=== PATIENT | male | born 1955 | race Caucasian/White ===

== ENCOUNTER 2018-01-07 15:10 | Inpatient (IN) | payer OTHER ==
[~2018-01-07] VITALS: Ht 167.6 cm; Wt 59.0 kg
[2018-01-07] VITALS (15 sets, daily range): BP systolic 86–157; BP diastolic 66–123
--- NOTE | ~2018-01-07 | EEG ---
[facility] [place] [address] ELECTROENCEPHALOGRAM Name: BRAULIO FUENTES Room #: 421-P [facility] IN .R.#: [id number] Admission: 01/07/18 Attend Phys: Zachery Stokes MD Discharge: Date of : 55 Report #: [id number] THIS REPORT FOR: //name// CC: Zachery Stokes [facility] physician/PCP DATE OF SERVICE: 01/11/2018 This patient's EEG is being done to evaluate the patient for altered mental status. The patient did not cooperate, so significant amount of artifact is present. EEG was done by placing the electrode by standard 10-20 system of electrode placement. Both referential and sequential montages were used for recording. Background activity in this patient is about 8 Hz and 30 microvolt. The patient appeared to be drowsy during part of this EEG associated with bilateral slowing and vertex sharp waves. Photic stimulation is unremarkable. Throughout the record, no active epileptiform activity was noted. IMPRESSION: This patient's EEG is difficult to interpret because it is masked by a lot of artifact. I do not see any well-defined epileptiform activity. EEG is slow and that is a nonspecific finding which can occur with encephalopathy, effect of psychotropic medication, dementia, etc. Clinical correlation is recommended. <ELECTRONICALLY SIGNED> By: Bud Anderson MD 01/12/18 1228 1659 1731 Bud Anderson MD /joe
--- NOTE | ~2018-01-07 | EKG ---
[address] [address] ELECTROCARDIOGRAM REPORT Name: BRAULIO FUENTES Room #: 246-P ADM IN M.R.#: [id number] Admission: 01/07/18 Attend Phys: Zachery Stokes MD Discharge: Date of : 55 Report #: [id number] THIS REPORT FOR: //name// [facility] ED Test Date: 2018-01-07 Test Time: 15:19:45 Pat Name: BRAULIO FUENTES Department: Room: 170 7 Gender: M [employer] Analyst: JLCAROLYN : 1955 Requested By: Miguelangel Cifuentes Order Number: [id number] MD: Lazaro Franco Measurements Intervals [place] Rate: 94 P: 83 VA: 124 QRS: 83 QRSD: 127 T: -18 QT: 440 QTc: 551 Interpretive Statements Sinus rhythm Right atrial enlargement Probable left ventricular hypertrophy Nonspecific T abnormalities, inferior leads Prolonged QT interval No previous ECG available for comparison Electronically Signed On 01-08-2018 7:33:44 CDT by Lazaro Franco [email or web address] <ELECTRONICALLY SIGNED> By: Lazaro Franco MD 01/08/18 0733 1519 1519 Lazaro Franco MD /MATT
--- NOTE | ~2018-01-07 | HC ---
[facility] [place] [address] CONSULTATION Name: BRAULIO FUENTES Room #: 421-P [facility] IN ..#: [id number] Admission: 01/07/18 Attend Phys: Zachery Stokes MD Discharge: Date of : 55 Report #: [id number] THIS REPORT FOR: //name// CC: Zachery Stokes [facility] physician/PCP CHIEF COMPLAINT: Urinary retention. HISTORY OF PRESENT ILLNESS: The patient is a very pleasant 62-year-old gentleman who is being seen today at the request of Dr. Stokes for evaluation and management of urinary retention. Specifically, he was admitted to [facility] with altered mental status and has been found to have rhabdomyolysis, altered mental status with encephalopathy, and at time of admission, he had acute renal failure. He can provide no history. He had normal upper tracts at the time of admission, but was in urinary retention. A catheter was placed. He subsequently failed a voiding trial and about 1200 mL of urine was obtained. Upon questioning, he really cannot answer any questions meaningfully about what he is feeling regarding his urinary system, in fact was completely unaware that a catheter was in his urethra. ALLERGIES: Not known. ILLNESSES: Include altered mental status, encephalopathy, rhabdomyolysis, UTI, sacral decubitus. PAST MEDICAL AND SURGICAL HISTORY: Unknown. SOCIAL HISTORY: Tobacco use is unknown. Alcohol use is unknown. REVIEW OF SYSTEMS: He denies shortness of breath or chest pain. PHYSICAL EXAMINATION: VITAL SIGNS: His temperature is 37.4, pulse 85, respirations 18, blood pressure 123/80. GENITOURINARY: He has normal phallus with an indwelling Waggoner catheter draining clear urine. LABORATORY DATA: White count 6500, hemoglobin 11.0, hematocrit 32.3, platelets 183,000. Sodium is 140, potassium 3.9, chloride 108, CO2 of 22, BUN 14, creatinine 1.2. Of note, creatinine was 5.[address] abdomen and pelvis showed distention of the bladder with no hydronephrosis of the kidneys. IMPRESSION: Altered mental status with urinary retention. At this point, he has failed a voiding trial and cannot answer questions meaningfully. It is unlikely that he will void spontaneously. I am happy to follow with you, but at [facility] [address] [place] [address] CONSULTATION Name: BRAULIO FUENTES Room #: 421-P [facility] IN ..#: [id number] Admission: 01/07/18 Attend Phys: Zachery Stokes MD Discharge: Date of : 55 Report #: [id number] this point, he needs a long-term drainage. I leave the Waggoner catheter in for the time being. Ultimately, he may need to be converted to a suprapubic tube. <ELECTRONICALLY SIGNED> By: Rusty Dickey MD 01/20/18 0701 0656 0939 Rusty Dickey MD /joe
--- NOTE | ~2018-01-07 | EEG ---
[facility] [place] [address] ELECTROENCEPHALOGRAM Name: BRAULIO FUENTES Room #: 246-P [facility] IN M.R.#: [id number] Admission: 01/07/18 Attend Phys: Zachery Stokes MD Discharge: Date of : 55 Report #: [id number] THIS REPORT FOR: //name// CC: Zachery Stokes [facility] physician/PCP DATE OF SERVICE: 01/08/2018 This patient is being evaluated for altered mental status. The EEG was done by placing the electrode by standard 10-20 system of electrode placement. Both referential and sequential montages were used for recording. Background activity in this patient's EEG is about 8 Hz and 30 microvolt. Photic stimulation is unremarkable. This patient became drowsy and went to sleep that is associated with bilateral symmetrical sleep spindle and vertex sharp waves. Throughout the record, no active epileptiform activity was noticed. IMPRESSION: This is a moderately abnormal EEG because it is intermixed with theta range slowing on both sides. That is a nonspecific abnormality, which can occur with encephalopathy, effect of psychotropic medication, dementia, etc. Clinical correlation is recommended. <ELECTRONICALLY SIGNED> By: Bud Anderson MD 01/10/182151 28 35 Bud Anderson MD /nt
--- NOTE | ~2018-01-07 | HC ---
[facility] [place] [address] CONSULTATION Name: BRAULIO FUENTES Room #: 246-P [facility] IN ..#: [id number] Admission: 01/07/18 Attend Phys: Zachery Stokes MD Discharge: Date of : 55 Report #: [id number] THIS REPORT FOR: //name// CC: Zachery Stokes [facility] physician/PCP DATE OF SERVICE: 01/08/2018 HISTORY OF PRESENT ILLNESS: This is a 62-year-old male patient who is unable to provide any history. I talked to Dr. Stokes, the hospitalist and I talked to the nurse looking after this patient. The patient does not provide any reliable history. It looks like this patient was found unresponsive on the floor of his house when the neighbor called the police for a wellness check. It would appear he was there for a few days. It is not clear what event caused him to fall down. He is not conscious, but wakes up some but does not even follow simple commands. Therefore, history is very difficult. REVIEW OF SYSTEMS: Indicate he is admitted with encephalopathy, rhabdo, acute renal failure, altered mental status. He does have some urinary tract infection, but his white count in the urine is rare. I tried to carry out the 14-point review of system and this is all I can get. Record also indicates that the patient may have a nasal bleed from urinary retention, lactic acidosis. This is all the 14-point review of system I can get from the patient or from the record and attempt was made to get that. FAMILY HISTORY: Unavailable in this patient. FAMILY HISTORY: Apparently this patient does not have a family as per record. SOCIAL HISTORY: Not known if the patient smokes or drinks alcohol or do any drugs. His urine drug screen was negative. His alcohol level was less than 10. PHYSICAL EXAMINATION: Pretty limited. It was attempted. He is sleepy, but he wakes up when constant stimulus is given, but goes back to sleep pretty fast. He does not follow even simple commands. That makes the examination very difficult. He does appear to have speech, but does not know what month it is. I attempted to do the cranial nerve examination 2-12 in this patient. He is not able to cooperate. I cannot tell if he moves symmetrically or what his sensation are, but reflexes appeared to be symmetrical, but he did not take a good position to do good reflexes here. I could not look at the fundus. He does not understand instruction for cerebellar sign. He is moderately well built individual who does not have any dysmorphic features of eyes, ears and face. His vision and hearing is difficult to tell. His cardiac examination is unremarkable. He does not appear to have much edema, cyanosis or jaundice. Blood pressure is 121/90, respirations 18, pulse is 58. His temperature is 97.3. [facility] [address] [place] [address] CONSULTATION Name: BRAULIO FUENTES Room #: 246-P [facility] IN ..#: [id number] Admission: 01/07/18 Attend Phys: Zachery Stokes MD Discharge: Date of : 55 Report #: [id number] LABORATORY DATA: Indicates normal white count now at 10.9, but his MCV is increased. He also has increased sodium. He did have a CT scan of the head, which demonstrated volume loss. IMPRESSION: Very difficult to perform in this patient because of such poor history. It is not clear what the cause of his passing out spell is. He does have brain atrophy and he does have increased MCV. We need to see if there is a history of alcohol intake in this patient and we will also check B12 level in this patient. He obviously has encephalopathy and will get an EEG to further evaluate that. RECOMMENDATIONS: 1. EEG. 2. B12 level because of increased MCV. 3. Because of increased MCV and loss of volume and CT, I will go ahead and give thiamine until we find out whether the patient has history of alcohol intake or not. 4. We may consider MRI if we can find some family. 5. We will check a TSH, vitamin B12. 6. We will follow up after the EEG is done and arranged. Further workup as necessary and see if we need to do an MRI in this patient or not. Thank you very much for this referral and Dr. Serna will be taking over the service and follow up with you from tomorrow. <ELECTRONICALLY SIGNED> By: Bud Anderson MD 01/10/18 2151 1050 8045 Bud Anderson MD /nt
[2018-01-07 15:53] LABS: BE(vivo) -6.6 mmol/L (-2 to +3); HCO3 13.9 mmol/L (22.0-26.0); PO2 112.4 mmHg (80.0-100.0); sO2 98.5 % (92.0-98.0)
[2018-01-07 16:01] LABS: PCO2 19.1 mmHg (35.0-45.0)
[2018-01-07 16:46] LABS: URINE BLOOD 1+ (Negative); URINE CLARITY CLEAR; URINE GLUCOSE-RANDOM* NEGATIVE (Negative); URINE KETONES NEGATIVE (Negative); URINE LEUKOCYTES-REFLEX NEGATIVE (Negative); URINE PROTEIN (DIPSTICK) NEGATIVE (Negative); URINE SPECIFIC GRAVITY >= 1.030 (1.005-1.035); URINE UROBILINOGEN 0.2 E.U./dl (0.2-1.0)
[2018-01-07 16:48] LABS: URINE NITRITE-REFLEX POSITIVE (Negative)
[2018-01-07 16:49] LABS: URINE BILIRUBIN NEGATIVE (Negative); URINE COLOR BROWNISH
[2018-01-07 16:50] LABS: SQUAMOUS None Seen /LPF (0-3); URINE RBC 0-2 Rare /HPF (0-2); URINE WBC-REFLEX 0-5 Rare /HPF (0-5)
[2018-01-07 16:51] LABS: BACTERIA-REFLEX 1-9 Few /HPF (None Seen); CASTS None Seen /LPF (None Seen); CRYSTALS None Seen /LPF (None Seen)
[2018-01-07 16:55] LABS: AMP/METHAMP Negative (Negative); BARBITURATES Negative (Negative); BENZODIAZEPINES Negative (Negative); COCAINE Negative (Negative); METHADONE Negative (Negative); OPIATES Negative (Negative); PCP Negative (Negative)
[2018-01-07 17:02] LABS: HEMATOCRIT 41.6 % (42.0-52.0); HEMOGLOBIN 14.4 gm/dL (14.0-18.0); MCH 39.6 pg (26.0-34.0); MCHC 34.8 g/dL (28.0-37.0); MCV 113.8 fL (80.0-100.0); RBC 3.65 mil/uL (4.50-6.00); RDW 16.2 % (10.5-14.5); WBC 13.7 thou/uL (4.0-11.0)
[2018-01-07 17:09] LABS: CALCIUM 8.4 mg/dL (8.5-10.1); CREATININE 5.1 mg/dL (0.7-1.3); POTASSIUM 3.1 mmol/L (3.5-5.1)
[2018-01-07 17:30] LABS: ALBUMIN 3.2 g/dL (3.4-5.0); TOTAL BILIRUBIN 1.2 mg/dL (<0.1-1.0); TOTAL PROTEIN 6.4 g/dL (6.4-8.2); TROPONIN-I 0.07 ng/mL (<0.06)
[2018-01-07 17:34] LABS: ABSOLUTE NEUTROPHILS 11.5 thou/uL (1.4-8.2); ANISOCYTOSIS 1+; PLATELET COUNT 191 thou/uL (150-400)
[2018-01-07 17:35] LABS: MACROCYTES 1+
[2018-01-08] VITALS (61 sets, daily range): BP systolic 80–130; BP diastolic 58–104
[2018-01-08 05:24] LABS: HEMATOCRIT 34.4 % (42.0-52.0); MCHC 35.3 g/dL (28.0-37.0); MCV 113.3 fL (80.0-100.0); RBC 3.04 mil/uL (4.50-6.00); WBC 10.9 thou/uL (4.0-11.0)
[2018-01-08 05:26] LABS: HEMOGLOBIN 12.2 gm/dL (14.0-18.0)
[2018-01-08 05:39] LABS: ALBUMIN 2.5 g/dL (3.4-5.0); CALCIUM 7.6 mg/dL (8.5-10.1); CREATININE 4.6 mg/dL (0.7-1.3); POTASSIUM 3.1 mmol/L (3.5-5.1); TOTAL BILIRUBIN 0.9 mg/dL (<0.1-1.0); TOTAL PROTEIN 5.4 g/dL (6.4-8.2)
[2018-01-08 12:06] LABS: TSH 0.757 uIU/mL (0.358-3.740)
[2018-01-09] VITALS (84 sets, daily range): BP systolic 63–135; BP diastolic 41–98
[2018-01-09 05:25] LABS: ABSOLUTE NEUTROPHILS 6.3 thou/uL (1.4-8.2); BASOPHILS 0.8 % (0.0-2.0); EOSINOPHILS 0.2 % (0.0-3.0); HEMATOCRIT 29.8 % (42.0-52.0); HEMOGLOBIN 10.4 gm/dL (14.0-18.0); LYMPHOCYTES 17.3 % (24.0-44.0); MCH 40.3 pg (26.0-34.0); MCHC 34.9 g/dL (28.0-37.0); MCV 115.4 fL (80.0-100.0); MONOCYTES 3.2 % (1.0-8.0); PLATELET COUNT 96 thou/uL (150-400); POLYS 78.5 % (36.0-66.0); RBC 2.59 mil/uL (4.50-6.00); RDW 15.5 % (10.5-14.5)
[2018-01-09 05:35] LABS: CALCIUM 7.2 mg/dL (8.5-10.1); PHOSPHORUS 3.2 mg/dL (2.5-4.9); POTASSIUM 3.1 mmol/L (3.5-5.1)
[2018-01-09 05:37] LABS: CREATININE 2.6 mg/dL (0.7-1.3)
[2018-01-10] VITALS (54 sets, daily range): BP systolic 70–220; BP diastolic 38–192
[2018-01-10 04:45] LABS: HEMATOCRIT 29.1 % (42.0-52.0); HEMOGLOBIN 10.2 gm/dL (14.0-18.0); MCH 39.9 pg (26.0-34.0); PLATELET COUNT 94 thou/uL (150-400); RBC 2.56 mil/uL (4.50-6.00); RDW 15.5 % (10.5-14.5); WBC 6.5 thou/uL (4.0-11.0)
[2018-01-10 05:04] LABS: CALCIUM 7.5 mg/dL (8.5-10.1); PHOSPHORUS 2.4 mg/dL (2.5-4.9); POTASSIUM 3.2 mmol/L (3.5-5.1)
[2018-01-10 05:06] LABS: CREATININE 1.6 mg/dL (0.7-1.3)
[2018-01-10 05:26] LABS: ABSOLUTE NEUTROPHILS 4.3 thou/uL (1.4-8.2); NUCLEATED RBCS 1 /100WBC
[2018-01-10 05:27] LABS: ANISOCYTOSIS 1+; MACROCYTES 3+; POLYCHROMASIA OCCASIONAL
[2018-01-11] VITALS (20 sets, daily range): BP systolic 82–117; BP diastolic 50–96
[2018-01-11 06:10] LABS: ALBUMIN 2.1 g/dL (3.4-5.0); CALCIUM 8.1 mg/dL (8.5-10.1); CREATININE 1.1 mg/dL (0.7-1.3); PHOSPHORUS 2.3 mg/dL (2.5-4.9); POTASSIUM 3.8 mmol/L (3.5-5.1)
[2018-01-11 09:51] LABS: HEMATOCRIT 30.3 % (42.0-52.0); HEMOGLOBIN 10.6 gm/dL (14.0-18.0)
[2018-01-12 04:00] VITALS: BP 99/69
[2018-01-12 05:54] LABS: HEMOGLOBIN 10.5 gm/dL (14.0-18.0); MCH 39.7 pg (26.0-34.0); MCV 113.7 fL (80.0-100.0); RBC 2.64 mil/uL (4.50-6.00); RDW 16.3 % (10.5-14.5); WBC 6.3 thou/uL (4.0-11.0)
[2018-01-12 11:54] VITALS: BP 101/70
[2018-01-12 16:09] VITALS: BP 98/66
[2018-01-12 19:22] VITALS: BP 105/76
[2018-01-12 23:53] VITALS: BP 112/81
[2018-01-13 03:54] VITALS: BP 119/87
[2018-01-13 05:19] LABS: CALCIUM 8.1 mg/dL (8.5-10.1); CREATININE 1.2 mg/dL (0.7-1.3); POTASSIUM 3.9 mmol/L (3.5-5.1)
[2018-01-13 05:22] LABS: PROTIME 10.5 Seconds (9.3-11.4)
[2018-01-13 05:36] LABS: HEMATOCRIT 30.7 % (42.0-52.0); HEMOGLOBIN 10.8 gm/dL (14.0-18.0); MCV 114.2 fL (80.0-100.0); RBC 2.69 mil/uL (4.50-6.00); RDW 16.2 % (10.5-14.5); WBC 5.7 thou/uL (4.0-11.0)
[2018-01-13 07:10] VITALS: BP 114/81
[2018-01-13 14:11] LABS: CSF RBC 230 /mm3; CSF WBC 6 /mm3 (0-10)
[2018-01-13 14:16] LABS: CSF GLUCOSE 54 mg/dL (40-70); CSF PROTEIN 113 mg/dL (15-45)
[2018-01-13 14:17] LABS: VOLUME 12 ml
[2018-01-13 15:29] VITALS: BP 107/84
[2018-01-13 19:20] VITALS: BP 104/64
[2018-01-14] VITALS (8 sets, daily range): BP systolic 70–121; BP diastolic 51–83
[2018-01-15] VITALS (7 sets, daily range): BP systolic 88–119; BP diastolic 51–81
[2018-01-16 01:09] VITALS: BP 128/90
[2018-01-16 04:24] VITALS: BP 101/63
[2018-01-16 07:43] VITALS: BP 115/97
[2018-01-16 15:25] VITALS: BP 93/66
[2018-01-16 16:07] LABS: CSF VDRL Non Reactive (Non Rea:<1:1)
[2018-01-17 03:45] VITALS: BP 120/80
[2018-01-17 08:15] VITALS: BP 126/75
[2018-01-17 17:00] VITALS: BP 127/75
[2018-01-17 20:00] VITALS: BP 134/85
[2018-01-18 04:30] VITALS: BP 141/76
[2018-01-18 07:18] VITALS: BP 135/84
[2018-01-18 10:48] LABS: HEMATOCRIT 32.3 % (42.0-52.0); MCH 39.6 pg (26.0-34.0); MCHC 34.2 g/dL (28.0-37.0); MCV 115.8 fL (80.0-100.0); RBC 2.79 mil/uL (4.50-6.00); RDW 15.4 % (10.5-14.5); WBC 6.5 thou/uL (4.0-11.0)
[2018-01-18 16:16] VITALS: BP 106/66
[2018-01-18 20:21] VITALS: BP 95/63
[2018-01-19 04:35] VITALS: BP 123/80
[2018-01-19 07:30] VITALS: BP 121/76
[2018-01-19 20:00] VITALS: BP 130/90
[2018-01-20 04:30] VITALS: BP 106/76
[2018-01-20 07:38] VITALS: BP 96/65
[2018-01-20 16:42] VITALS: BP 66/50
[2018-01-20 20:00] VITALS: BP 89/54
[2018-01-21 04:00] VITALS: BP 94/61
[2018-01-21 07:15] VITALS: BP 122/74
[2018-01-21 15:52] VITALS: BP 102/63
[2018-01-21 19:15] VITALS: BP 104/60
[2018-01-22 03:45] VITALS: BP 117/75
[2018-01-22 13:22] LABS: HEMATOCRIT 28.2 % (42.0-52.0); HEMOGLOBIN 9.8 gm/dL (14.0-18.0); MCH 39.2 pg (26.0-34.0); MCHC 34.8 g/dL (28.0-37.0); MCV 112.7 fL (80.0-100.0); RBC 2.5 mil/uL (4.50-6.00); RDW 15.7 % (10.5-14.5); WBC 5.6 thou/uL (4.0-11.0)
[2018-01-22 13:29] LABS: CALCIUM 7.9 mg/dL (8.5-10.1); CREATININE 0.9 mg/dL (0.7-1.3); POTASSIUM 3.4 mmol/L (3.5-5.1)
[2018-01-22 16:50] VITALS: BP 92/54
[2018-01-22 19:45] VITALS: BP 117/80
[2018-01-23 04:00] VITALS: BP 129/92
[2018-01-23 08:25] VITALS: BP 78/56
[2018-01-23 16:00] VITALS: BP 96/67
[2018-01-23 20:12] LABS: HEMATOCRIT 24.1 % (42.0-52.0); HEMOGLOBIN 8.1 gm/dL (14.0-18.0)
[2018-01-23 20:52] VITALS: BP 78/50
[2018-01-23 23:55] VITALS: BP 85/54
[2018-01-24 04:27] VITALS: BP 96/60
[2018-01-24 05:55] LABS: CALCIUM 7.9 mg/dL (8.5-10.1); CREATININE 0.9 mg/dL (0.7-1.3); POTASSIUM 3.7 mmol/L (3.5-5.1)
[2018-01-24 05:57] LABS: BASOPHILS 0.3 % (0.0-2.0)
[2018-01-24 05:59] LABS: ABSOLUTE NEUTROPHILS 6.6 thou/uL (1.4-8.2); EOSINOPHILS 0.4 % (0.0-3.0); LYMPHOCYTES 19.7 % (24.0-44.0); MCH 38.6 pg (26.0-34.0); MCHC 34.3 g/dL (28.0-37.0); MCV 112.5 fL (80.0-100.0); MONOCYTES 4.7 % (1.0-8.0); PLATELET COUNT 176 thou/uL (150-400); POLYS 74.9 % (36.0-66.0); RBC 1.67 mil/uL (4.50-6.00); RDW 15.4 % (10.5-14.5); WBC 8.8 thou/uL (4.0-11.0)
[2018-01-24 06:03] LABS: HEMATOCRIT 18.7 % (42.0-52.0); HEMOGLOBIN 6.4 gm/dL (14.0-18.0)
[2018-01-24 09:12] VITALS: BP 85/60
[2018-01-24 10:08] VITALS: BP 88/58; BP 88/64
[2018-01-24 15:07] LABS: HEMATOCRIT 21.9 % (42.0-52.0); HEMOGLOBIN 7.6 gm/dL (14.0-18.0)
[2018-01-24 15:26] VITALS: BP 102/55
[2018-01-24 20:25] VITALS: BP 94/65
[2018-01-25 03:48] VITALS: BP 93/52
[2018-01-25 06:01] LABS: HEMATOCRIT 20.7 % (42.0-52.0); MCH 34.7 pg (26.0-34.0); MCHC 33.8 g/dL (28.0-37.0); PLATELET COUNT 191 thou/uL (150-400); RBC 2.01 mil/uL (4.50-6.00); RDW 25.3 % (10.5-14.5); WBC 6.4 thou/uL (4.0-11.0)
[2018-01-25 06:02] LABS: MCV 102.7 fL (80.0-100.0)
[2018-01-25 06:07] LABS: CALCIUM 7.4 mg/dL (8.5-10.1); POTASSIUM 3.5 mmol/L (3.5-5.1)
[2018-01-25 06:57] VITALS: BP 103/71
[2018-01-25 07:41] LABS: ABSOLUTE NEUTROPHILS 4.7 thou/uL (1.4-8.2); ANISOCYTOSIS 2+; HYPOCHROMASIA 1+; MACROCYTES SLIGHT; METAMYELOCYTES 1 %; POIKILOCYTOSIS SLIGHT
[2018-01-25 07:42] LABS: POLYCHROMASIA SLIGHT
[2018-01-25 08:34] VITALS: BP 105/68; BP 110/69
[2018-01-25 19:15] VITALS: BP 132/76
[2018-01-26 04:05] VITALS: BP 101/78
[2018-01-26 05:50] LABS: ABSOLUTE NEUTROPHILS 2.8 thou/uL (1.4-8.2); BASOPHILS 0.6 % (0.0-2.0); EOSINOPHILS 2.4 % (0.0-3.0); HEMATOCRIT 24.6 % (42.0-52.0); HEMOGLOBIN 8.4 gm/dL (14.0-18.0); LYMPHOCYTES 32.2 % (24.0-44.0); MCH 34.2 pg (26.0-34.0); MCHC 34.3 g/dL (28.0-37.0); MCV 99.8 fL (80.0-100.0); PLATELET COUNT 223 thou/uL (150-400); POLYS 59.8 % (36.0-66.0); RBC 2.47 mil/uL (4.50-6.00); RDW 25.7 % (10.5-14.5); WBC 4.7 thou/uL (4.0-11.0)
[2018-01-26 06:01] LABS: CALCIUM 7.8 mg/dL (8.5-10.1); POTASSIUM 3.5 mmol/L (3.5-5.1)
[2018-01-26 08:45] VITALS: BP 115/74
[2018-01-26 08:48] LABS: ANISOCYTOSIS 3+
[2018-01-26 08:49] LABS: MACROCYTES 1+; POLYCHROMASIA OCCASIONAL
[2018-01-26] MEDS ORDERED: ERGOCALCIF50000 UNIT PO (15:22)
[2018-01-26] MEDS ORDERED: FLOMAX0.4 MG PO (15:22)
[2018-01-26] MEDS ORDERED: GABAPENTIN 100100 MG PO (15:22)
[2018-01-26] MEDS ORDERED: PROTONIX40 M1 PO (15:22)
[2018-01-26] MEDS ORDERED: HALOPERIDOL 5 MG5 MG PO (15:22)
[2018-01-26] MEDS ORDERED: FOLIC ACID1 MG PO (15:22)
[2018-01-26] MEDS ORDERED: ACETAMINOPHEN325 M1 PO (15:22)
[2018-01-26] MEDS ORDERED: RISPERIDONE 00.25 M1 PO (15:22)
[2018-01-26] MEDS ORDERED: VITAMIN B-1100 M2 PO (15:22)
[2018-01-26 15:45] VITALS: BP 123/70
== END 2018-01-26 18:15 | DRG 871 ==
LOC: ER 15:10 → EROBS 17:46 → ICU 17:46 → 4E 01-11 16:57
PROVIDERS: Family Medicine; Hospitalist; Internal Medicine Gastroenterology; Nurse Practitioner; Nurse Practitioner Family; Physician Assistant; Psychiatry & Neurology Neurology; Psychiatry & Neurology Neuromuscular Medicine
PROC: 02HV33Z Insertion of Infusion Device into Superior Vena Cava, Percutaneous Approach (ICD-10-PCS; principal; 2018-01-07)
PROC: B01B1ZZ Fluoroscopy of Spinal Cord using Low Osmolar Contrast (ICD-10-PCS; 2018-01-13)
PROC: 009U3ZX Drainage of Spinal Canal, Percutaneous Approach, Diagnostic (ICD-10-PCS; 2018-01-13)
PROC: 30233N1 Transfusion of Nonautologous Red Blood Cells into Peripheral Vein, Percutaneous Approach (ICD-10-PCS; 2018-01-24)
DX: A41.9 Sepsis, unspecified organism (principal); G93.41 Metabolic encephalopathy; N17.9 Acute kidney failure, unspecified; M62.82 Rhabdomyolysis; N39.0 Urinary tract infection, site not specified; E87.0 Hyperosmolality and hypernatremia; E46 Unspecified protein-calorie malnutrition; K92.2 Gastrointestinal hemorrhage, unspecified; F10.27 Alcohol dependence with alcohol-induced persisting dementia; R33.9 Retention of urine, unspecified; E86.9 Volume depletion, unspecified; E87.6 Hypokalemia; E86.0 Dehydration; D69.6 Thrombocytopenia, unspecified; D53.9 Nutritional anemia, unspecified; L89.150 Pressure ulcer of sacral region, unstageable; Z60.2 Problems related to living alone; R41.0 Disorientation, unspecified; F09 Unspecified mental disorder due to known physiological condition; R04.0 Epistaxis; Z68.21 Body mass index [BMI] 21.0-21.9, adult; Z79.899 Other long term (current) drug therapy
CPT/HCPCS: 10183; 10203; 10783; 27000; 50455